=== PATIENT | female | born 1940 | race Caucasian/White ===

== ENCOUNTER 2021-02-05 09:19 | Emergency (ER) | payer MEDICARE, BC, SELFPAY ==
[2021-02-05 09:33] VITALS: BP 120/75; PULSE 86; RESP 18; TEMP 36.7; O2SAT 100
--- NOTE | 2021-02-05 09:44 | ED.FEMALEGU ---
HPI - Female Genitourinary General Chief complaint: Urogenital-Female Stated complaint: UTI Time Seen by Provider: 02/05/21 09:45 Source: patient Mode of arrival: ambulatory Limitations: no limitations History of Present Illness HPI Narrative: Irasema Issa is a 80 yo female with a PMH of GERD, hypertension, hypothyroid, who comes to [facility] for treatment of frequency and burning with urination that started 2 days ago. She had her first urine urinary tract infection 2 months ago and has tried to watch what she drinks and eats since then Related Data Home Medications Medication Instructions Recorded Confirmed amlodipine 10 mg PO DAILY 02/05/21 02/05/21 bisoprolol-hydrochlorothiazide 1 tablet PO DAILY 02/05/21 02/05/21 escitalopram oxalate 10 mg PO DAILY 02/05/21 02/05/21 famotidine 20 mg PO DAILY 02/05/21 02/05/21 irbesartan 300 mg PO DAILY 02/05/21 02/05/21 levothyroxine [Synthroid] 25 mcg PO DAILY 02/05/21 02/05/21 omeprazole 40 mg PO DAILY 02/05/21 02/05/21 prednisone 20 mg PO DAILY 02/05/21 02/05/21 Allergies Allergy/AdvReac Type Severity Reaction Status Date / Time No Known Allergies Allergy Unverified 02/05/21 09:41 Review of Systems Review of Systems: CONSTITUTIONAL: Denies fever, chills, sweats. EYES: Denies visual changes, redness, discharge. ENT: Denies rhinorrhea, congestion, sore throat, otalgia. CARDIOVASCULAR: Denies chest pain, palpitations, edema. RESPIRATORY: Denies dyspnea, wheezing, cough GASTROINTESTINAL: Denies abdominal pain, nausea, vomiting, diarrhea. GENITOURINARY: Has dysuria, hematuria, abnormal discharge SKIN: Denies rash or itching. NEUROLOGIC: Denies numbness, or focal weakness. PSYCHIATRIC: Denies anxiety or depression. [facility] Past Medical History Medical History GERD (gastroesophageal reflux disease) Hypertension Hypothyroid Social History Social History (Updated 02/05/21 @ 09:52 by Nuria Pandey CNP) Smoking status: Never smoker Alcohol intake: current Comments At time of signature, I agree with nursing past medical, surgical, social and family history. There is no relevant family history pertinent to the presenting complaint. Exam Narrative: GENERAL: This is a well-nourished, well-developed patient, in no distress. HEAD: normocephalic, atraumatic. EYES: Sclera clear/white. Vision is grossly intact. EARS: External ears normal, Hearing grossly intact. NOSE: External nose normal without nasal discharge, nares without redness, no rhinorrhea. THROAT: Mucous membranes moist, NECK: Neck supple, non-tender CARDIOVASCULAR: Regular rate and rhythm without murmurs, gallops, or rubs. RESPIRATORY: Clear to auscultation. Breath sounds equal bilaterally. No wheezes, rales, or rhonchi. GASTROINTESTINAL: Abdomen soft, non-tender, SKIN: warm, intact with no suspicious lesions or rash, good texture and turgor. NEURO: awake, alert, and oriented to person, place and time. There were no obvious focal neurologic abnormalities. Steady gait EXTREMITIES: Normal range of motion. BACK: Nontender without deformity Course Course Emergency Course: Patient comes to [facility] with frequency and urinary burning UA shows positive nitrite 2+ leukocytes and trace blood Started on Keflex 1 twice daily x5 days; drink plenty of water Vital Signs Vital signs: Vital Signs Temperature 98.1 F 02/05/21 09:33 Pulse Rate 86 02/05/21 09:33 Respiratory Rate 02/05/21 09:33 Blood Pressure 120/75 02/05/21 09:33 Pulse Oximetry 100 02/05/21 09:33 Temperature 98.1 F 02/05/21 09:33 Pulse Rate 86 02/05/21 09:33 Respiratory Rate 18 02/05/21 09:33 Blood Pressure 120/75 02/05/21 09:33 Pulse Oximetry 100 02/05/21 09:33 MDM - Female Genitourinary Differential Diagnosis Differential diagnosis: Likely urinary tract infection, cystitis and other Lab Data Labs: Urine Glucose Negative
== END 2021-02-05 10:21 | disposition home or self-care (01) ==
PROVIDERS: Emergency Provider Nurse Practitioner
DX: N30.01 Acute cystitis with hematuria (principal); I10 Essential (primary) hypertension; E03.9 Hypothyroidism, unspecified
CPT/HCPCS: 81003; 87077; 87086; 87186; 99213; G0463

== ENCOUNTER 2021-09-16 16:07 | Emergency (ER) | payer MEDICARE, BC, SELFPAY ==
--- NOTE | 2021-09-16 16:16 | ED.FEMALEGU ---
HPI - Female Genitourinary General Chief complaint: Urogenital-Female Stated complaint: uti Time Seen by Provider: 09/16/21 16:16 Source: patient Mode of arrival: ambulatory Limitations: no limitations History of Present Illness HPI Narrative: Ms. Issa is an 81-year-old female patient presenting to the clinic today with complaints of lower abdominal pain and dysuria. She reports that these symptoms began 1 to 2 days ago. Denies any fever or chills. Last BM was today and normal for the patient. She denies any blood in her stool. She denies any bloating of her abdomen. Does have a history of diverticulitis. She states that she does not get urinary tract infections however she is having burning with urination . She denies any vaginal discharge. MD elicited complaint: dysuria Related Data Home Medications Medication Instructions Recorded Confirmed amlodipine 10 mg PO DAILY 02/05/21 09/16/21 bisoprolol-hydrochlorothiazide 1 tablet PO DAILY 02/05/21 09/16/21 escitalopram oxalate 10 mg PO DAILY 02/05/21 09/16/21 famotidine 20 mg PO DAILY 02/05/21 09/16/21 irbesartan 300 mg PO DAILY 02/05/21 09/16/21 levothyroxine [Synthroid] 25 mcg PO DAILY 02/05/21 09/16/21 omeprazole 40 mg PO DAILY 02/05/21 09/16/21 fenofibrate 160 mg PO DIRECTED 09/16/21 09/16/21 Allergies Allergy/AdvReac Type Severity Reaction Status Date / Time No Known Allergies Allergy Unverified 09/16/21 16:17 Review of Systems Review of Systems: Pertinent positives per HPI. Patient denies any fever, chills, rash, headache, visual changes, dizziness, cough, runny nose, sore throat, shortness of breath, chest pain, palpitations, nausea, vomiting, diarrhea, constipation. [facility] Past Medical History Medical History GERD (gastroesophageal reflux disease) Hypertension Hypothyroid Social History Social History Smoking status: Never smoker Alcohol intake: current Comments At the time of my signature, I reviewed and agree with the nursing past medical, surgical, social, and family history. There is no relevant family history pertinent to the patient complaint. Exam Narrative: General: Well-developed, well nourished, in no apparent distress. Head: Normocephalic, atraumatic. Cardio: Regular rate and rhythm, s1 and s2 normal, no murmur appreciated. Resp: Clear to auscultation bilaterally, no rhonchi, rales, wheezing or rubs. Abdomen: Soft, pliable, nondistended, bowel sounds present in all quadrants, mild tenderness to palpation over the lower abdomen and over bladder, no organomegly, no CVAT tenderness. Course Course Emergency Course: Portions of this record may have been created with voice recognition software. Level of Care: Express Care Visit Vital Signs Vital signs: Vital signs reviewed MDM - Female Genitourinary MDM Narrative Medical decision making narrative: At the time of visit patient is resting comfortably on the exam table. She has mild tenderness to the bilateral quadrants of the lower abdomen as well as suprapubic tenderness. She denies any fever chills or any changes in her bowel function. Reports that this does not feel like her normal diverticulitis pain. UA positive for trace leukocyte otherwise it was negative. Will send urine for culture and give her a prescription for some Pyridium for the dysuria. She is instructed to go to the ER if her lower abdominal pain worsens as she could potentially be having the start up of a diverticulitis flare. Supportive measures were discussed and she voiced understanding of discharge instructions. Differential Diagnosis Differential diagnosis: Likely urinary tract infection, bacterial vaginosis and other (Diverticulitis, constipation, overactive bladder, interstitial cystitis,) Discharge Plan Discharge Clinical Impression: Dysuria, Abdominal pain, lower Patien
[2021-09-16 16:19] VITALS: BP 135/88; PULSE 99; RESP 16; TEMP 37.1; O2SAT 99
== END 2021-09-16 16:46 | disposition home or self-care (01) ==
PROVIDERS: Emergency Provider Nurse Practitioner Family
DX: R30.0 Dysuria (principal); R10.30 Lower abdominal pain, unspecified; E03.9 Hypothyroidism, unspecified; I10 Essential (primary) hypertension
CPT/HCPCS: 81003; 87086; 99213; G0463

== ENCOUNTER 2022-02-03 18:24 | Emergency (ER) | payer MEDICARE, BC, SELFPAY ==
[2022-02-03 19:12] VITALS: BP 129/73; PULSE 76; RESP 18; TEMP 36.6; O2SAT 98
--- NOTE | 2022-02-03 19:20 | ED.FEMALEGU ---
HPI - Female Genitourinary General Stated complaint: uti Time Seen by Provider: 02/03/22 19:25 Source: patient and RN notes reviewed Mode of arrival: ambulatory Limitations: no limitations History of Present Illness HPI Narrative: 81-year-old female presents with concern for 3-day history of dysuria, frequency, urgency. She reports history of urinary tract infections. She denies fever, body aches, chills, sweats. She reports mild general malaise. She denies abdominal pain or back pain. MD elicited complaint: UTI Related Data Home Medications Medication Instructions Recorded Confirmed amlodipine 10 mg tablet 10 mg PO DAILY 02/05/21 09/16/21 bisoprolol 5 1 tablet PO DAILY 02/05/21 09/16/21 mg-hydrochlorothiazide 6.25 mg tablet escitalopram oxalate 10 mg tablet 10 mg PO DAILY 02/05/21 09/16/21 famotidine 20 mg tablet 20 mg PO DAILY 02/05/21 09/16/21 irbesartan 300 mg tablet 300 mg PO DAILY 02/05/21 09/16/21 levothyroxine 25 mcg tablet 25 mcg PO DAILY 02/05/21 09/16/21 (Synthroid) omeprazole 40 mg capsule,delayed 40 mg PO DAILY 02/05/21 09/16/21 release fenofibrate 160 mg tablet 160 mg PO DIRECTED 09/16/21 09/16/21 Allergies Allergy/AdvReac Type Severity Reaction Status Date / Time No Known Allergies Allergy Unverified 09/16/21 16:17 Review of Systems Review of Systems: CONSTITUTIONAL: Reports malaise. Denies chills, sweats, or fever. CARDIOVASCULAR: Denies chest pain, palpitations, or edema. RESPIRATORY: Denies cough or dyspnea. GASTROINTESTINAL: Denies abdominal pain, nausea, vomiting, diarrhea GENITOURINARY: Reports dysuria, frequency, urgency. Denies suprapubic pressure. Denies flank pain or hematuria. SKIN: Denies rash or itching. MUSCULOSKELETAL: Denies back pain or myalgia. All systems reviewed & are unremarkable except as noted in HPI and below PMFSH Past Medical History Medical History GERD (gastroesophageal reflux disease) Hypertension Hypothyroid Social History Social History (Reviewed 09/16/21 @ 16:56 by SOM Garcia Smoking status: Never smoker Alcohol intake: current Comments At time of signature, agree with nursing past medical, surgical, social and family history. There is no relevant family history pertinent to the presenting complaint Exam Narrative: GENERAL: Well-appearing, well-nourished, and in no acute distress. HEAD: Normocephalic. EYES: PERRLA, conjunctivae clear. NECK: Supple. No lymphadenopathy CHEST: Clear to auscultation. No respiratory distress. HEART: Regular rate and rhythm. ABDOMEN: Soft, nontender upon palpation, nondistended, normal active bowel sounds, no palpable or pulsatile masses, no guarding. No CVA tenderness SKIN: Warm, dry, no rash. NEURO: Alert and oriented x3. PSYCH: Normal mood and affect Course Course Emergency Course: Patient is aware of diagnosis, understands and agrees to treatment plan. Anticipatory guidance given. Patient agrees to follow-up as directed and is aware of reasons to seek care at the emergency department. Portions of this record may have been created with voice recognition software Level of Care: Express Care Visit Vital Signs Vital signs: Vital Signs Temperature 97.8 F 02/03/22 19:12 Pulse Rate 76 02/03/22 19:12 Respiratory Rate 18 02/03/22 19:12 Blood Pressure 129/73 02/03/22 19:12 Pulse Oximetry 98 02/03/22 19:12 Oxygen Delivery Room Air 02/03/22 19:12 Temperature 97.8 F 02/03/22 19:12 Pulse Rate 76 02/03/22 19:12 Respiratory Rate 18 02/03/22 19:12 Blood Pressure 129/73 02/03/22 19:12 Pulse Oximetry 98 02/03/22 19:12 Oxygen Delivery Room Air 02/03/22 19:12 Reviewed. MDM - Female Genitourinary MDM Narrative Medical decision making narrative: Exam findings and UA show no acute concerns or changes; patient is non-toxic appearing and is in no distress. Patient is appropria
== END 2022-02-03 19:54 | disposition home or self-care (01) ==
PROVIDERS: Emergency Provider Nurse Practitioner
DX: R30.0 Dysuria (principal); K21.9 Gastro-esophageal reflux disease without esophagitis; I10 Essential (primary) hypertension; E03.9 Hypothyroidism, unspecified
CPT/HCPCS: 81003; 87086; 99213; G0463

== ENCOUNTER 2022-05-19 10:12 | Emergency (ER) | payer MEDICARE, BC, SELFPAY ==
[2022-05-19 10:30] VITALS: BP 143/73; PULSE 72; RESP 16; TEMP 36.3; O2SAT 99
--- NOTE | 2022-05-19 10:45 | ED.FEMALEGU ---
HPI - Female Genitourinary General Chief complaint: Urogenital-Female Stated complaint: UTI Time Seen by Provider: 05/19/22 10:35 Source: patient Mode of arrival: ambulatory Limitations: no limitations History of Present Illness HPI Narrative: 81-year-old female presents with complaint of urinary frequency, dysuria, low back pain for 2 days. Afebrile. Denies nausea vomiting diarrhea. No abdominal pain. Denies frequent urinary tract infections. All systems reviewed and negative except as noted above. Related Data Home Medications Medication Instructions Recorded Confirmed amlodipine 10 mg tablet 10 mg PO DAILY 02/05/21 02/03/22 bisoprolol 5 1 tablet PO DAILY 02/05/21 02/03/22 mg-hydrochlorothiazide 6.25 mg tablet escitalopram oxalate 10 mg tablet 10 mg PO DAILY 02/05/21 02/03/22 irbesartan 300 mg tablet 300 mg PO DAILY 02/05/21 02/03/22 omeprazole 40 mg capsule,delayed 40 mg PO DAILY 02/05/21 02/03/22 release fenofibrate 160 mg tablet 160 mg PO DIRECTED 09/16/21 02/03/22 Fish Oil 05/19/22 Vitamin D 05/19/22 Allergies Allergy/AdvReac Type Severity Reaction Status Date / Time No Known Allergies Allergy Unverified 05/19/22 10:29 Review of Systems Review of Systems: CONSTITUTIONAL: Denies fever, chills, or sweats. EYES: Denies visual changes, redness, or discharge. ENT: Denies rhinorrhea, congestion, sore throat, or otalgia. CARDIOVASCULAR: Denies chest pain, palpitations, or edema. RESPIRATORY: Denies cough or dyspnea. GASTROINTESTINAL: Denies abdominal pain, nausea, vomiting, or diarrhea. GENITOURINARY: Report dysuria, frequency. Denies hematuria. SKIN: Denies rash or itching. MUSCULOSKELETAL: Denies back pain, joint pain, or myalgia. NEUROLOGIC: Denies headache, numbness, or weakness. PSYCHIATRIC: Denies anxiety or depression. All other systems reviewed are negative, except as documented in HPI. [facility] Past Medical History Medical History GERD (gastroesophageal reflux disease) Hypertension Hypothyroid Social History Social History (Reviewed 09/16/21 @ 16:56 by SOM Garcia Smoking status: Never smoker Alcohol intake: current Comments At time of signature, agree with nursing past medical, surgical, social and family history. There is no relevant family history pertinent to the presenting complaint. Exam Narrative: GENERAL: This is a well-nourished, well-developed patient, in no apparent distress. HEAD: normocephalic, atraumatic. EYES: PERRL. Sclera clear/white. Vision is grossly intact. EARS: External ears normal NOSE: External nose normal NECK: Neck supple, non-tender without lymphadenopathy, masses or thyromegaly. CARDIOVASCULAR: Regular rate and rhythm without murmurs, gallops, or rubs. RESPIRATORY: Clear to auscultation. Breath sounds equal bilaterally. No wheezes, rales, or rhonchi. SKIN: warm, Dry, intact with no suspicious lesions or rash, good texture and turgor. NEURO: awake, alert, and oriented to person, place and time. There were no obvious focal neurologic abnormalities. EXTREMITIES: No joint tenderness, effusion, or edema noted. BACK: Nontender without deformity. No CVA tenderness. Course Course Level of Care: Express Care Visit Vital Signs Vital signs: Vital Signs Temperature 36.3 C L 05/19/22 10:30 Pulse Rate 72 05/19/22 10:30 Respiratory Rate 16 05/19/22 10:30 Blood Pressure 143/73 H 05/19/22 10:30 Pulse Oximetry 99 05/19/22 10:30 Oxygen Delivery Room Air 05/19/22 10:30 Temperature 36.3 C L 05/19/22 10:30 Pulse Rate 72 05/19/22 10:30 Respiratory Rate 16 05/19/22 10:30 Blood Pressure 143/73 H 05/19/22 10:30 Pulse Oximetry 99 05/19/22 10:30 Oxygen Delivery Room Air 05/19/22 10:30 reviewed MDM - Female Genitourinary MDM Narrative Medical decision making narrative: Patient is aware of diagnosis, understands and agree
== END 2022-05-19 10:46 | disposition home or self-care (01) ==
PROVIDERS: Emergency Provider Nurse Practitioner Family; PCP Internal Medicine
DX: N39.0 Urinary tract infection, site not specified (principal); K21.9 Gastro-esophageal reflux disease without esophagitis; I10 Essential (primary) hypertension; E03.9 Hypothyroidism, unspecified
CPT/HCPCS: 81003; 87077; 87086; 87186; 99213; G0463

== ENCOUNTER 2023-03-09 10:24 | Emergency (ER) | payer MEDICARE, BC, SELFPAY ==
[2023-03-09 10:38] VITALS: BP 163/63; PULSE 83; RESP 16; TEMP 37.7; O2SAT 98
--- NOTE | 2023-03-09 10:58 | ED.URI ---
HPI - URI/Sore Throat General Chief Complaint: Upper Respiratory Infection Stated Complaint: cough,chest issue Time Seen by Provider: 03/09/23 10:48 Source: patient and RN notes reviewed Mode of arrival: ambulatory Limitations: no limitations History of Present Illness HPI Narrative: Patient presents today with a 2 week history of cough and a 4 day history of nasal congestion, fatigue. She has been using Robitussin and cough drops without much relief. Denies shortness of breath, fever. She is a nonsmoker Related Data Home Medications Medication Instructions Recorded Confirmed amlodipine 10 mg tablet 10 mg PO DAILY 02/05/21 03/09/23 bisoprolol 5 1 tablet PO DAILY 02/05/21 03/09/23 mg-hydrochlorothiazide 6.25 mg tablet escitalopram oxalate 10 mg tablet 10 mg PO DAILY 02/05/21 03/09/23 omeprazole 40 mg capsule,delayed 40 mg PO DAILY 02/05/21 03/09/23 release fenofibrate 160 mg tablet 160 mg PO DIRECTED 09/16/21 03/09/23 Allergies Allergy/AdvReac Type Severity Reaction Status Date / Time atorvastatin [From Lipitor] AdvReac Intermediate Nausea and Verified 03/09/23 10:46 Vomiting Review of Systems Review of Systems: CONSTITUTIONAL: Denies body aches, fever, chills, or sweats.+ fatigue EYES: Denies visual changes, redness, or discharge. ENT: Denies rhinorrhea, sore throat, or otalgia.+ congestion CARDIOVASCULAR: Denies chest pain, palpitations, or edema. RESPIRATORY: Denies dyspnea.+ cough GASTROINTESTINAL: Denies abdominal pain, nausea, vomiting, or diarrhea. GENITOURINARY: Denies dysuria or hematuria. SKIN: Denies rash, itching, or wounds. MUSCULOSKELETAL: Denies back pain, joint pain, or myalgia. NEUROLOGIC: Denies headache, numbness, tingling, or weakness. PSYCH: Denies depression or anxiety. [facility] Past Medical History Medical History GERD (gastroesophageal reflux disease) Hypertension Hypothyroid Social History Social History Smoking status: Never smoker Alcohol intake: current Comments At time of signature, I have reviewed and agree with nursing past medical, surgical, social and family history unless otherwise noted. Please see nursing chart for further information. There is no relevant family history pertinent to the presenting complaint Exam Narrative: GENERAL: Well-appearing, well-nourished, and in no acute distress. HEAD: Normocephalic, atraumatic. EYES: EOMI. No redness or drainage. Conjunctivae normal. ENT: Mucous membranes pink and moist. Nares congested. No rhinorrhea. TMs normal bilaterally. Throat normal. Uvula midline. Hoarse voice NECK: Normal AROM. Supple. No lymphadenopathy. CHEST: No respiratory distress. Clear to auscultation. Frequent cough HEART: Regular rate and rhythm. No murmur appreciated. Normal peripheral pulses. EXTREMITIES: Normal range of motion. No edema. SKIN: Warm, dry, no rash. Capillary refill normal. Normal skin turgor. NEURO: No focal deficits. Alert and oriented x3. Gait steady. PSYCH: Normal affect. No signs of depression or anxiety. Course Course Level of Care: Express Care Visit Vital Signs Vital signs: Vital Signs Temperature 99.9 F H 03/09/23 10:38 Pulse Rate 83 03/09/23 10:38 Respiratory Rate 16 03/09/23 10:38 Blood Pressure 163/63 H 03/09/23 10:38 Pulse Oximetry 98 03/09/23 10:38 Oxygen Delivery Room Air 03/09/23 10:38 Temperature 99.9 F H 03/09/23 10:38 Pulse Rate 83 03/09/23 10:38 Respiratory Rate 16 03/09/23 10:38 Blood Pressure 163/63 H 03/09/23 10:38 Pulse Oximetry 98 03/09/23 10:38 Oxygen Delivery Room Air 03/09/23 10:38 Reviewed MDM - URI/Sore Throat MDM Narrative Medical decision making narrative: Will treat patient for sinusitis and bronchitis with Augmentin and prednisone. No testing indicated at this time. Anticipatory guidance
== END 2023-03-09 11:12 | disposition home or self-care (01) ==
PROVIDERS: Emergency Provider Nurse Practitioner; PCP Internal Medicine
DX: J01.90 Acute sinusitis, unspecified (principal); K21.9 Gastro-esophageal reflux disease without esophagitis; I10 Essential (primary) hypertension; E03.9 Hypothyroidism, unspecified
CPT/HCPCS: 99213; G0463

== ENCOUNTER 2023-04-26 15:09 | Emergency (ER) | payer MEDICARE, BC, SELFPAY ==
[2023-04-26 15:24] VITALS: BP 143/63; PULSE 75; RESP 16; TEMP 37.2; O2SAT 98
[2023-04-26 15:25] VITALS: BP 143/63; PULSE 75; RESP 16; TEMP 37.2; O2SAT 98
--- NOTE | 2023-04-26 15:29 | ED.GENADULT ---
HPI - General Adult General Chief complaint: Upper Respiratory Infection Stated complaint: cough,urinary issues Time Seen by Provider: 04/26/23 15:30 Source: patient, RN notes reviewed and old records reviewed Mode of arrival: ambulatory Limitations: no limitations History of Present Illness HPI narrative: 82-year-old female who presents to [facility] with complaints of cough and chest congestion this started Sunday. Patient states was seen here about 6 weeks ago for the same symptoms, patient states symptoms improved but returned. The patient denies shortness of breath, chest pain, weakness, vomiting. patient also complaining urinary frequency, burning with urination, urinary urgency, and suprapubic pain for 1 day. Related Data Home Medications Medication Instructions Recorded Confirmed amlodipine 10 mg tablet 10 mg PO DAILY 02/05/21 04/26/23 bisoprolol 5 1 tablet PO DAILY 02/05/21 04/26/23 mg-hydrochlorothiazide 6.25 mg tablet escitalopram oxalate 10 mg tablet 10 mg PO DAILY 02/05/21 04/26/23 omeprazole 40 mg capsule,delayed 40 mg PO DAILY 02/05/21 04/26/23 release fenofibrate 160 mg tablet 160 mg PO DIRECTED 09/16/21 04/26/23 Allergies Allergy/AdvReac Type Severity Reaction Status Date / Time atorvastatin [From Lipitor] AdvReac Intermediate Nausea and Verified 04/26/23 15:24 Vomiting Review of Systems Constitutional: Constitutional: Reports no additional constitutional complaints Eyes: Eyes: Reports no additional eye complaints ENT: Reports nasal discharge Cardiovascular: Cardiovascular: Reports no additional cardiovascular complaints Respiratory: Respiratory: Reports as per HPI, Reports chest congestion and Reports cough Neurologic: Reports system reviewed and no additional complaints, except as documented PMFSH Past Medical History Medical History GERD (gastroesophageal reflux disease) Hypertension Hypothyroid Social History Social History Smoking status: Never smoker Alcohol intake: current Comments At the time of my signature, I reviewed and agree with the nursing past medical, surgical, social, and family history. There is no relevant family history pertinent to the patient complaint. Exam Const: General: cooperative, healthy appearing, no acute distress and well nourished Nutritional Appearance: well nourished Orientation/consciousness: patient oriented x3 Limitations: no limitations HENMT: Head: normal to inspection and normocephalic Ears: external ears normal, TM's normal bilaterally, mastoids normal and Abnormal EAC present Face/Nose/Sinus: normal facial exam Face and sinus: normal facial exam Mouth: Yes Normal oral and palatal mucosa present, Yes oropharynx normal and Yes moist mucous membranes Throat: posterior oropharynx normal, tonsils normal, uvula midline and no uvular edema Eyes: General: appearance normal, both eyes and all related structures Sclera: sclerae normal Pupils: Equal, round and reactive pupils present Resp: Effort & Inspection: normal respiratory effort, able to speak in complete sentences, no audible wheezes, no cough, no respiratory distress and no retractions Auscultation: clear to auscultation bilaterally, no crackles, no rales, no rhonchi and no wheezes Cardio: Rate: regular rate Rhythm: regular rhythm GI: Inspection: non-distended GI Palp: No abdominal tenderness, Yes Soft to palpation, No Tenderness to palpation present (GI) and No Guarding due to palpation present (GI) Auscultation: normal bowel sounds Back/Spine/Pelvis: Back: no CVA tenderness Skin: General skin exam: normal color and no rashes or lesions noted Neuro: General: patient oriented x3 Cranial nerves: Yes Equal, round and reactive pupils present Psych: Appearance: grossly normal Course Course Emergency Course: Some parts of this dictatio
== END 2023-04-26 15:44 | disposition home or self-care (01) ==
PROVIDERS: Emergency Provider Registered Nurse; PCP Internal Medicine
DX: J20.9 Acute bronchitis, unspecified (principal); N30.91 Cystitis, unspecified with hematuria; B96.20 Unspecified Escherichia coli [E. coli] as the cause of diseases classified elsewhere
CPT/HCPCS: 81003; 87077; 87086; 87186; 99213; G0463

== ENCOUNTER 2024-06-28 12:29 | Emergency (ER) | payer MEDICARE, BC, SELFPAY ==
[2024-06-28 12:51] VITALS: BP 140/82; PULSE 81; RESP 16; TEMP 35.7; O2SAT 98
--- NOTE | 2024-06-28 12:53 | ED.FEMALEGU ---
HPI - Female Genitourinary General Chief complaint: Urogenital-Female Stated complaint: urinary issue Time Seen by Provider: 06/28/24 12:33 Source: patient, RN notes reviewed and old records reviewed Mode of arrival: ambulatory Limitations: no limitations History of Present Illness HPI Narrative: Patient presents with complaints of urinary frequency and burning for 3 days. She denies any fever, chills, sweats. She does report some lower abdominal pain and lower back pain, bilateral. She reports small amount of blood in the urine. She is not in any distress at this time. She has not been taking anything for her symptoms. No other concerns or complaints today Related Data Home Medications ?Medication ?Instructions ?Recorded ?Confirmed ?Last Taken ?Type amlodipine 10 mg tablet 10 mg PO DAILY 02/05/21 06/28/24 Unknown History bisoprolol 5 1 tablet PO DAILY 02/05/21 06/28/24 Unknown History mg-hydrochlorothiazide 6.25 mg tablet escitalopram oxalate 10 mg tablet 10 mg PO DAILY 02/05/21 06/28/24 Unknown History fenofibrate 160 mg tablet 160 mg PO DIRECTED 09/16/21 06/28/24 Unknown History aripiprazole 2 mg tablet 2 mg PO DAILY 06/28/24 06/28/24 Unknown History escitalopram oxalate 20 mg tablet 20 mg PO DAILY 06/28/24 06/28/24 Unknown History famotidine 20 mg tablet 20 mg PO DAILY 06/28/24 06/28/24 Unknown History irbesartan 300 mg tablet 300 mg PO DAILY 06/28/24 06/28/24 Unknown History Allergies Allergy/AdvReac Type Severity Reaction Status Date / Time atorvastatin (From Lipitor) AdvReac Intermediate Nausea and Verified 06/28/24 12:36 Vomiting Review of Systems Review of Systems: All systems reviewed & are unremarkable except as noted in HPI and below Constitutional: Constitutional: Reports no additional constitutional complaints ENT: Reports system reviewed and no additional complaints, except as documented Cardiovascular: Cardiovascular: Reports no additional cardiovascular complaints Respiratory: Respiratory: Reports no additional respiratory complaints Gastrointestinal: Gastrointestinal: Reports no additional gastrointestinal complaints Genitourinary: Genitourinary: Reports as per HPI, Reports nocturia, Reports dysuria and Reports urinary urgency [facility] Past Medical History Medical History GERD (gastroesophageal reflux disease) Hypertension Hypothyroid Social History Social History Smoking status: Never smoker Alcohol intake: current Comments At the time of my signature, I reviewed and agree with the nursing past medical, surgical, social, and family history. There is no relevant family history pertinent to the patient complaint. Exam Const: General: cooperative, no acute distress, alert and awake Orientation/consciousness: oriented to person, oriented to place and oriented to time HENMT: Head: normal to inspection Resp: Effort & Inspection: normal respiratory effort and able to speak in complete sentences Auscultation: clear to auscultation bilaterally, no crackles, no rales, no rhonchi and no wheezes Cardio: Palpation: normal PMI Rate: regular rate Rhythm: regular rhythm Heart sounds: S1 normal heart sound present and S2 normal heart sound present : General: Yes bladder normal to palpation and Yes no CVA tenderness Neuro: General: oriented to person, oriented to place and oriented to time Cranial nerves: Yes CN's II-XII intact bilaterally Psych: Appearance: grossly normal Thought process: Normal thought process present Insight: Good insight present (Psych) Judgement: Good judgement present (Psych) Course Course Level of Care: Express Care Visit Vital Signs Vital signs: Vital Signs Temperature 96.3 F L 06/28/24 12:51 Pulse Rate 81 06/28/24 12:51 Respiratory Rate 16 06/28/24 12:51 Blood Pressure 140/82 06/28/24 12:51 Pulse Oximetry 98 06/28/24 12:51 Oxygen Delivery Room Air 06/28/24 12:51 Temperature 96.3 F L 06/28/24 12:51 Pulse Rate 81 06/28/24 12:51 Respiratory Rate 16 06/28/24 12:51 Blood Pressure 140/82 06/28/24 12:51 Pulse Oximetry 98 06/28/24 12:51 Oxygen Delivery Room Air 06/28/24 12:51 Reviewed MDM - Female Genitourinary MDM Narrative Medical decision making narrative: UA concerning for UTI. Start Macrobid. Culture pending. Discharge instructions reviewed with patient, as well as provided in writing per nursing staff. The instructions also include specific and strict return/GO TO THE ER as well as f/u information. All questions have been answered, and the patient deny any further questions with discharge and discharge plan. Some parts of this dictation were generated by voice recognition software and may contain typographical and/or grammatical inaccuracies. Differential Diagnosis Differential diagnosis: Likely urinary tract infection and cystitis Medical Records Attestation: I reviewed the patient's medical records. Lab Data Attestation: I reviewed the patient's lab results. Discharge Plan Discharge Clinical Impression: Urinary tract infection Qualifiers: Urinary tract infection type: site unspecified Hematuria presence: with hematuria Qualified Code(s): N39.0 - Urinary tract infection, site not specified Patient Disposition: Home, Self-Care Condition: Stable Instructions: Antibiotic Form, Urinary Tract Infection in Women (ED) Additional Instructions: Take medications as prescribed. Follow-up with primary care provider. Emergency department for new or worse symptoms Patient Language: Latvian Prescriptions: New nitrofurantoin monohyd/m-cryst [Macrobid] 100 mg capsule 100 mg PO Q12H 5 Days Qty: 10 0RF Rx Instructions: must administer with a meal/food No Action fenofibrate 160 mg tablet 160 mg PO DIRECTED bisoprolol-hydrochlorothiazide 5-6.25 mg tablet 1 tablet PO DAILY amlodipine 10 mg tablet 10 mg PO DAILY escitalopram oxalate 10 mg tablet 10 mg PO DAILY famotidine 20 mg tablet 20 mg PO DAILY irbesartan 300 mg tablet 300 mg PO DAILY escitalopram oxalate 20 mg tablet 20 mg PO DAILY aripiprazole 2 mg tablet 2 mg PO DAILY Follow-up/Referrals: Julian,Cathi Nayak MD [Primary Care Provider] - 2 Weeks Time of Disposition: 13:05
[2024-06-28 12:57] LABS: EDUAAPPEAR Clear; EDUABILI Negative (Negative); EDUABLOOD Trace (Negative); EDUACOLOR1 Yellow; EDUAGLUCOSE Negative (Negative); EDUAKETONE Negative (Negative); EDUALEUKO 1+ (Negative); EDUANITRATE Negative (Negative); EDUAPROTEIN Negative (Negative); EDUAUROBILI 0.2
== END 2024-06-28 13:09 | disposition home or self-care (01) ==
PROVIDERS: Emergency Provider Nurse Practitioner Family; PCP Internal Medicine
DX: N39.0 Urinary tract infection, site not specified (principal); I10 Essential (primary) hypertension; E03.9 Hypothyroidism, unspecified; K21.9 Gastro-esophageal reflux disease without esophagitis
CPT/HCPCS: 81003; 87086; 99213; G0463